=== PATIENT | male | born 1955 | race Caucasian/White ===

== ENCOUNTER 2017-03-09 08:30 | Emergency (ER) | payer OTHER ==
[~2017-03-09] VITALS: Ht 175.3 cm; Wt 89.8 kg
[~2017-03-09 08:30] MED LIST: ASPIRIN325 MG PO; BENTYL20 MG PO; CIPRO500 MG PO; COLACE100 MG PO; FLAGYL500 MG PO; LORTAB 5-325 M1 EACH PO; TOPAMAX100 MG PO; TOPROL XL50 MG PO
[2017-03-09 09:18] LABS: HEMATOCRIT 40.9 % (38.0-50.0); MCH 31.9 PG (29.0-34.0); MCHC 33.3 G/DL (30.0-36.0); MEAN PLAT.VOLUME 11.1 uM^3 (9.0-12.4); PLATELET COUNT 125 K/uL (156-360); RBC DIS.WIDTH-CV 13.2 % (11.8-14.6); RBC DIS.WIDTH-SD 46.9 % (39-53); RED BLOOD COUNT 4.26 M/uL (4.00-5.50); WHITE BLOOD COUNT 8.8 K/uL (4.1-10.2)
[2017-03-09 09:28] LABS: CHLORIDE 111 mEq/L (99-109); POTASSIUM 4.6 mEq/L (3.7-5.4); SODIUM 141 mEq/L (136-147)
[2017-03-09 09:30] LABS: GLUCOSE 88 mg/dL (70-99)
[2017-03-09 09:31] LABS: ANION GAP 8 MEQ/L (2-14)
[2017-03-09 09:32] LABS: TOTAL BILIRUBIN 1.2 mg/dL (0.0-1.0)
[2017-03-09 09:34] LABS: ALKALINE PHOSPHATASE 69 IU/L (3-129); GFR ESTIMATE (CALCULATED) > 59 mL/min/
[2017-03-09 09:35] LABS: UREA NITROGEN (BUN) 20 mg/dL (9-23)
[2017-03-09 10:42] LABS: ADD MIUA? NO; BILIRUBIN NEGATIVE; BLOOD NEGATIVE; COLOR YELLOW ((YELLOW)); GLUCOSE (STRIP) NEGATIVE; KETONES 20; LEUKOCYTES NEGATIVE; NITRITE NEGATIVE; PROTEIN (STRIP) NEGATIVE; SPECIFIC GRAVITY 1.016 (1.000-1.030); UCUL ADDED? NO; UROBILINOGEN 0.2 MG/DL (0.2-1.0)
[2017-03-09 12:41] LABS: LIPASE 28 U/L (1.0-51.0)
[2017-03-09] MEDS ORDERED: BENTYL10 MG PO (12:45)
[2017-03-09 13:09] VITALS: BP 130/70
== END 2017-03-09 13:11 | disposition home or self-care (01) ==
LOC: EME 08:30
DX: R10.30 Lower abdominal pain, unspecified (principal); I48.91 Unspecified atrial fibrillation
CPT/HCPCS: 74176; 80053; 81003; 83690; 85027; 99281; 99283; J1885